=== PATIENT | male | born 2000 | race Caucasian/White ===

== ENCOUNTER 2020-12-08 00:35 | Emergency (ER) | payer SELFPAY ==
[~2020-12-08] VITALS: Ht 177.8 cm; Wt 68.0 kg
[2020-12-08 01:39] VITALS: BP 131/92
== END 2020-12-08 01:40 | disposition home or self-care (01) ==
LOC: ER 00:35
DX: Z13.9 Encounter for screening, unspecified (principal)
CPT/HCPCS: 99283